=== PATIENT | female | born 1940 | race Caucasian/White ===

== ENCOUNTER 2016-05-03 16:23 | Emergency (ER) | payer MEDICARE, BC ==
[2016-05-03] MEDS ORDERED: DUONEB INH ONE (18:48)
[2016-05-03] MEDS ORDERED: CEFTRIAXONE 1 GM VIAL ONE (18:58)
[2016-05-03] MEDS ORDERED: SODIUM CHLORIDE 0.9% 100 ML IV ONE (18:58)
== END 2016-05-03 20:12 | disposition home or self-care (01) ==
LOC: ER 16:23
DX: J15.9 Unspecified bacterial pneumonia (principal); I48.91 Unspecified atrial fibrillation; I10 Essential (primary) hypertension; I49.9 Cardiac arrhythmia, unspecified; Z96.651 Presence of right artificial knee joint; Z86.718 Personal history of other venous thrombosis and embolism; Z79.01 Long term (current) use of anticoagulants; Z79.899 Other long term (current) drug therapy
CPT/HCPCS: 36415; 71010; 80053; 82550; 83735; 84484; 85025; 85610; 85730; 93005; 94640; 96365; 99285; J0696